=== PATIENT | male | born 1940 | race Caucasian/White ===

== ENCOUNTER 2016-10-13 18:37 | Emergency (ER) | payer MEDICARE, OTHER ==
[2011-05-11 23:11] VITALS: BMI 34.0
[2016-10-13 19:48] LABS: BASOPHILS 0.1 % (0.0-2.0); EOSINOPHILS 1.7 % (0-7); HEMATOCRIT 40.7 % (42.0-54.0); HEMOGLOBIN 13.3 g/dL (13.5-17.5); IMMATURE GRANULOCYTES 0.3 % (0-5); LYMPHOCYTES 15.7 % (15-50); MCH 28.1 pg (26.0-34.0); MCHC 32.7 g/dL (31.0-37.0); MONOCYTES 9.4 % (2-11); NEUTROPHILS 72.8 % (40-80); PLATELET COUNT 101 10x3/uL (130-400); RBC 4.73 10x6/uL (4.20-6.10); RDW 14.5 % (11.5-14.5); WBC 7.2 10x3/uL (4.8-10.8)
[2016-10-13 19:59] LABS: ANION GAP 17.4 mmol/L (8-16); BILIRUBIN - TOTAL 0.5 mg/dL (0.2-1.3); CALCIUM 8.7 mg/dL (8.5-10.1); CARBON DIOXIDE 23.8 mmol/L (21.0-32.0); CREATININE - SERUM 1.3 mg/dL (0.6-1.3); POTASSIUM - SERUM 4.2 mmol/L (3.5-5.1); PROTEIN - SERUM 8.1 g/dL (6.4-8.2)
[2016-10-13 20:02] LABS: APPEARANCE CLEAR (CLEAR); BILIRUBIN NEGATIVE (NEGATIVE); COLOR YELLOW (YELLOW); GLUCOSE 1000 mg/dL (NEGATIVE); KETONE NEGATIVE (NEGATIVE); LEUKOCYTE ESTERASE NEGATIVE (NEGATIVE); NITRITE NEGATIVE (NEGATIVE); PROTEIN NEGATIVE (NEGATIVE); SPECIFIC GRAVITY 1.015 (1.005-1.020); UROBILINOGEN NORMAL (NORMAL)
[2016-10-13 20:23] LABS: TROPONIN-I 0.01 ng/mL (0.000-0.060)
== END 2016-10-13 22:10 | disposition home or self-care (01) ==
LOC: D.ER 18:37
PROVIDERS: Emergency Medicine; Physician Assistant
DX: R10.13 Epigastric pain (principal); I25.10 Atherosclerotic heart disease of native coronary artery without angina pectoris; E11.9 Type 2 diabetes mellitus without complications; I10 Essential (primary) hypertension; E07.9 Disorder of thyroid, unspecified; Z95.0 Presence of cardiac pacemaker; Z86.73 Personal history of transient ischemic attack (TIA), and cerebral infarction without residual deficits

== ENCOUNTER 2016-11-12 19:12 | Emergency (ER) | payer MEDICARE, OTHER ==
[2011-05-11 23:11] VITALS: BMI 34.0
[2016-11-12 20:10] LABS: BASOPHILS 0.5 % (0.0-2.0); EOSINOPHILS 3.2 % (0-7); HEMATOCRIT 40.9 % (42.0-54.0); HEMOGLOBIN 13.2 g/dL (13.5-17.5); LYMPHOCYTES 23.9 % (15-50); MCH 28.2 pg (26.0-34.0); MCHC 32.3 g/dL (31.0-37.0); MCV 87.4 fL (80.0-100.0); MEAN PLATELET VOLUME 10.9 fL (7.4-10.4); MONOCYTES 9.5 % (2-11); NEUTROPHILS 62.9 % (40-80); PLATELET COUNT 94 10x3/uL (130-400); RBC 4.68 10x6/uL (4.20-6.10); WBC 4.4 10x3/uL (4.8-10.8)
[2016-11-12 20:11] LABS: ALKALINE PHOSPHATASE 72 U/L (46-116); ALT (SGPT) 40 U/L (10-68); BILIRUBIN - TOTAL 0.55 mg/dL (0.2-1.3); CALC OSMOLALITY 282 mosm/kg (275-300); CALCIUM 8.4 mg/dL (8.5-10.1); CHLORIDE - SERUM 103 mmol/L (98-107); CREATININE - SERUM 1.2 mg/dL (0.6-1.3); GLUCOSE 167 mg/dL (74-106); POTASSIUM - SERUM 4.3 mmol/L (3.5-5.1); SODIUM 138 mmol/L (136-145); UREA NITROGEN 20 mg/dL (7-18); eGFR NON AFRICAN AMERICAN 62 mL/min (90-120)
[2016-11-12 20:31] LABS: CREATINE KINASE 549 UL (21-232); TROPONIN-I 0.032 ng/mL (0.000-0.060)
[2016-11-12 20:31] LABS: PLATELET ESTIMATE DECREASED
[2016-11-12 20:35] LABS: CKMB 4.5 U/L (0.0-3.6)
== END 2016-11-12 20:35 | disposition home or self-care (01) ==
LOC: D.ER 19:12
PROVIDERS: Family Medicine; Nurse Practitioner Family
DX: S16.1XXA Strain of muscle, fascia and tendon at neck level, initial encounter (principal); V49.40XA Driver injured in collision with unspecified motor vehicles in traffic accident, initial encounter; Y93.89 Activity, other specified; Y92.410 Unspecified street and highway as the place of occurrence of the external cause; S62.637A Displaced fracture of distal phalanx of left little finger, initial encounter for closed fracture; I10 Essential (primary) hypertension; E11.9 Type 2 diabetes mellitus without complications; Z95.0 Presence of cardiac pacemaker; E07.9 Disorder of thyroid, unspecified

== ENCOUNTER → 2017-05-12 07:51 | Outpatient (CLI) | payer MEDICARE, OTHER | END | disposition home or self-care (01) | LOC: D.CT 07:51 | DX: R06.00 Dyspnea, unspecified (principal) ==

== ENCOUNTER → 2017-07-15 09:24 | Outpatient (CLI) | payer MEDICARE, OTHER ==
[2011-05-11 23:11] VITALS: BMI 34.0
[~2017-07-15 09:24] MED LIST: ALDACTONE25 MG PO; ARNUITY ELLIP200 MCG INH; BACLOFEN10 MG PO; GLUCOPHAGE1000 MG PO; INVOKANA300 MG PO; LEVOTHYROXINE75 MCG PO; LOSARTAN POTASS25 MG PO; MONTELUKAST TAB 10M; NEURONTIN 300300 MG; PLAVIX75 MG PO; PROAIR HFA8.5 GM INH; ZOVIRAX400 MG PO
[2017-07-15 11:50] LABS: BASOPHILS 0.2 % (0-2); HEMATOCRIT 40.3 % (42.0-54.0); HEMOGLOBIN 12.9 g/dL (13.5-17.5); IMMATURE GRANULOCYTES 0.2 % (0-5); LYMPHOCYTES 21.4 % (15-50); MCH 27.4 pg (26.0-34.0); MCV 85.6 fL (80.0-100.0); MEAN PLATELET VOLUME 10.2 fL (7.4-10.4); MONOCYTES 6.8 % (2-11); NEUTROPHILS 69.4 % (40-80); RBC 4.71 10x6/uL (4.20-6.10); RDW 14.8 % (11.5-14.5); WBC 5.6 10x3/uL (4.8-10.8)
[2017-07-15 11:52] LABS: PLATELET COUNT 118 10x3/uL (130-400)
[2017-07-16 05:15] LABS: IMMUNOGLOBULIN E 39 IU/mL (0-100)
[2017-07-16 09:17] LABS: ANA REFLEX - DIRECT Negative (Negative)
== END | disposition home or self-care (01) ==
LOC: D.RT 09:24
PROVIDERS: Internal Medicine Pulmonary Disease
DX: J44.9 Chronic obstructive pulmonary disease, unspecified (principal)

== ENCOUNTER 2017-07-22 05:06 | Day surgery (SDC) | payer MEDICARE, OTHER ==
--- NOTE | 2017-07-12 10:37 | HP ---
PATIENT: MITESH ARCHER MEDICAL RECORD: [id number] ACCOUNT: [id number] LOCATION:[facility] : 38 ADMISSION DATE: 07/16/17 HISTORY AND PHYSICAL EXAMINATION MITESH Haji (77yo, M) ID# [id number]. Date/Time07/09/2017 01:15SOVWB1939[facility] Dept.NPP_[facility] ClinicProviderEDKOFI NIXON MDInsuranceMed Primary: [place] Insurance # : [id number] PCP : JULIO BLAIR Referring Provider Name : JULIO BLAIR Employer Name : RETIRED Med Secondary: [employer] (MEDICARE SUPPLEMENT) Insurance # : [id number] Policy/Group # : [employer] PCP : JULIO BLAIR Referring Provider Name : JULIO BLAIR Employer Name : RETIRED Prescription: CMX - Member is eligible. Chief Complaint AICD evaluate for ICD generator exchange Patient's Care Team Primary Care Provider (): JULIO BLAIR: [address] [place] [address], , Referring Provider (): JULIO BLAIR: [address] [place] [address], , Spotter Driver: PB MCINTYRE MD: [address] [place] [phone], , Patient's Pharmacies [facility] ([facility]): [address] [place] [id number], , Vitals BP:136/76 sitting R arm 07/09/2017 01:24 pmBP Cuff Size:adult 07/09/2017 01:24 pmHR:80,reg 07/09/2017 01:24 pmHt:5 ft 8 in 07/09/2017 01:20 pmWt:210 lbs 07/09/2017 01:24 pmNotes:originally placed in , then was exchanged by Dr Bradshaw less than three years ago. Now at end of life again. 07/09/2017 01:25 pmBMI:31.9 07/09/2017 01:24 pmAllergies Reviewed Allergies IODINATED CONTRAST- ORAL AND IV DYE: Respiratory qotannkoVSFFNTP-ZXL-MDC REDUCTASE INHIBITORSHas Allergic Reactions to all IV DYES all statin drugs per ptMedications Reviewed Medications ACYCLOVIR TAB 351IMUYTFJDLGW25/23/15 filledCatalystHealthSolutionsacyclovir 400 mg eizncw48/01/17 filledCaremarkAdacel (Tdap Adolesn/Adult)(PF)2 Lf-(2.5-5-3-5)-5 Lf/0.5 mL IM /03/17 filledCaremarkALLOPURINOL 100 MG TABS05/17/15 filledCatalystHealthSolutionsAnoro Ellipta 62.5 mcg-25 mcg/actuation powder for qtmmfowefh68/14/17 filledCaremarkArnuity Ellipta 200 mcg/actuation powder for inhalation Inhale 1 puff(s) every day by inhalation route for 30 days.05/26/17 filledCaremarkAspir- enteredCindy Brownbaclofen 10 mg ckojej67/14/17 filledCaremarkcarvedilol 25 mg tablet TAKE 1 TABLET(S) TWICE A DAY BY ORAL ROUTE.04/21/17 filledCaremarkcholestyramine (with sugar) 4 gram powder for susp in a nqkyde92/28/14 filledCaremarkCLOPIDOGREL TAB 07BLUTRVMOGHTKB96/12/15 filledCatalystHealthSolutionsclopidogrel 75 mg pirxoo57/01/17 filledCaremarkfamciclovir 500 mg qjdgwy72/02/12 HISTORY AND PHYSICAL [id number] MITESH ARCHER filledCaremarkgabapentin 300 mg hwbvaga59/01/17 filledCaremarkglipiZIDE 5 mg ifsbrr98/07/17 filledCaremarkHYDROcodone 10 mg-acetaminophen 325 mg tablet Take 1 tablet(s) every 4-6 hours by oral route.06/13/11 filledCareMark-RxAmericaInvokana 300 mg eztzcs12/17/17 filledCaremarkirbesartan 150 mg yqnwzg66/02/14 filledCaremarkJanuvia 100 mg ktfexa98/07/14 filledCaremarkketorolac 0.4 % eye drops04/23/12 filledCaremarklevothyroxine 75 mcg /01/17 filledCaremarklisinopril 5 mg /30/11 filledCareMark-RxAmericalosartan 25 mg ixlsgq58/08/17 filledCaremarkmetFORMIN 1,000 mg /01/17 filledCaremarkmontelukast 10 mg tablet Take 1 tablet(s) every day by oral route for 30 days.07/02/17 filledCaremarknabumetone 750 mg /30/14 filledCaremarkNitrostat 0.4 mg sublingual oqfvhq56/01/15 filledCaremarkprednisoLONE acetate 1 % eye drops,/30/12 filledCaremarkraNITIdine 150 mg bqzcci05/20/17 filledCaremarkspironolactone 25 mg /08/17 filledCaremarkTRAMADOL HCL TAB 50MGTRAMADOL HCL01/03/15 filledCatalystHealthSolutionstriamcinolone acetonide 55 mcg nasal spray qynxher45/01/11 filledCaremarkVentolin HFA 90 mcg/actuation aerosol inhaler Inhale 2 PUFF EVERY 4 HOURS as needed by inhalation route.05/26/17 filledCaremarkVigamox 0.5 % eye drops04/23/12 filledCaremarkProblems Reviewed Problems Cardiomyopathy - Onset: 07/02/2017 Osteoarthritis of knee Shoulder joint pain Acquired trigger finger Non-traumatic rupture of biceps brachii tendon Sprain of shoulder and upper arm Implanted defibrillator generator failure - Onset: 07/02/2017 Family History Discussed Family History Non-contributory.Mother- AsthmaFather- Disorder of lung - MTbSocial History Discussed Social History Smoking Status: Never smoker Non-smoker Surgical History Reviewed Surgical History Biceps tendon repair - 05/10/2011 Other - 08/25/1986 - Open Heart Surgery/CABG cholecystectomy, PCI stent, hand surgery Past Medical History Discussed Past Medical History COPD: Y Chest Pain: Y Coronary Artery Disease: Y - CABG, PCI stent Diabetes: Y Heart Disease: Y - pacemaker High Blood Pressure: Y Thyroid Problems: Y Documents for Discussion N/A Screening HISTORY AND PHYSICAL [id number] MITESH ARCHER None recorded. HPI Coronary Artery Disease F/U Reported by patient. Severity: symptoms are improving; no chest discomfort with daily activities; has not needed to use Nitroglycerin Context: non-smoker Associated Symptoms: no chest pain; no neck pain; no left arm pain; no dyspnea with exertion; no sweating; no nausea; no stress Notes: no problems since he has had device. Has not been shocked. biventricular AICD end-of-life ROS Patient reports exercise intolerance but reports no fever, no night sweats, no significant weight gain, and no significant weight loss. He reports dry eyes but reports no irritation and no vision change. He reports nose/sinus problems but reports no frequent nosebleeds. He reports chest pain on exertion and shortness of breath when walking but reports no arm pain on exertion, no shortness of breath when lying down, no palpitations, and no known heart murmur. He reports cough, wheezing, and shortness of breath but reports no coughing up blood. He reports frequent diarrhea but reports no abdominal pain, no vomiting, normal appetite, not vomiting blood, no nausea, and no constipation. He reports increased urinary frequency but reports no incontinence, no difficulty urinating, and no hematuria. He reports muscle aches, muscle weakness, and arthralgias/joint pain but reports no back pain and no swelling in the extremities. He reports dizziness but reports no loss of consciousness, no weakness, no numbness, and no seizures. He reports fatigue. He reports sinus pressure but reports no runny nose, no itching, no hives, and no frequent sneezing. He reports no difficulty hearing and no ear pain. He reports no sore throat, no bleeding gums, no snoring, no dry mouth, no mouth ulcers, no oral abnormalities, and no teeth problems. He reports no jugular vein distension and no swollen glands. He reports no abnormal mole, no jau ndice, and no rashes. He reports no depression, no sleep disturbances, feeling safe in relationship, and no alcohol abuse. He reports no swollen glands and no bruising. ROS as noted in the HPI Physical Exam Patient is a 77-year-old male. Constitutional: General Appearance: well developed and overweight. Level of Distress: no acute distress. Ambulation: ambulating normally. Ears: Cerumen negative. Canal: no erythema or swelling. Tympanic Membrane: no bulging or fluid and perforated. Nasal: Nasal Mucosa: no discharge and edematous. Septum: not markedly deformed. Oropharynx: Lips, Teeth, and Gums normal dentition and lips. Oral Mucosa no ulcer, mass, inflammation, swelling, or leukoplakia and moist. Palate: normal hard palate and soft palate. Tongue: no jonathan thema, lesions, enlargement, or swelling. Tonsils: no enlargement or lesions. Posterior Pharynx no enlargement, erythema, exudate, ulcers, mass, cobblestoning, or white patches. Neck: Neck: supple, trachea midline, no masses, and Full ROM. Thyroid: no enl argement or nodules and non-tender. Jugular Veins: no jugular venous distention or burrows a waves present and normal jugular venous pressure. Lungs: Respiratory effort: unlabored. Inspection: normal curve and chest wall HISTORY AND PHYSICAL [id number] MITESH ARCHER expansion; no deformity, tenderness , or swelling; and tactile fremitus present and equal on both sides. Auscultation: no wheezing, rales/crackles, or rhonchi and breath sounds normal. Percussion: no dullness, flatness, or hyperresonance. Cardiovascular: Precordial Exam: non displaced focal PMI. Heart Rate And Rhythm: normal heart rate and rhythm. Heart Sounds: no gallop, click, physiologically split S2, or pericardial friction rub and normal s1. Systolic Murmur: no systolic murmurs. Diastolic Murmur: no diastolic murmurs. Observation/Palpa tion of peripheral vascular system: no cyanosis or varicosity changes and normal dorsalis pedis and posterior tibialis. Abdomen: Inspection and Palpation: no tenderness or masses and soft and non-distended. Liver: non-tender and no hepatomegaly. Spleen: no n-tender and no splenomegaly. Bowel Sounds: normal and no abdominal bruits. Lymphatic: no cervical lymph enlargement, axillary LAD, inguinal LAD, femoral LAD, supraclavicular LAD, or popliteal LAD. Musculoskeletal:: Motor Strength and Tone: normal bulk, tone, and motor strength. Gait and Station: normal gait, station, and tandem gait. Joints, Bones, and Muscles: no contractures, malalignment, tenderness, scoliosis, kyphosis, or bony abnormalities and normal movement of all extremities. Extremities: Inspection/Palpation of digits and nails: no clubbing, cyanosis, petechiae, ischemia, edema, or nodular lesions. Skin: Inspection and palpation: no rash, lesions, jaundice, ulcer, erythema, or induration and normal turgor. Neurologic: Mental Status/Orientatio n: oriented to person, place, problem/situation, and time. Mood/Affect: normal mood and affect. Sensation sensation normal. Cranial Nerves cranial nerves II - XII intact. Deep Tendon Reflexes upper extremities positive and lower extremities positive. Assessment / Plan AICD end-of-life 1. Cardiomyopathy I42.9: Cardiomyopathy, unspecified Discussion Notes I have discussed the patient's disease process with him in detail as well as the alternative methods of treatment we discussed as the generator exchange i n the expected benefits and risks which include bleeding, infection, stroke, , and the imponderables. He understands all of the above and wishes to proceed with planned surgery next week. HISTORY AND PHYSICAL [id number] MITESH ARCHER EDWARD MD at 1037 CC: [id number] DICTATION DATE: 07/09/17 1315 BEAM SAW OPERATOR: MEENA 07/09/17 1501 [facility] [address] [place] [address]
[~2017-07-22] VITALS: Ht 175.3 cm; Wt 93.0 kg
[2017-07-22 06:14] LABS: HEMATOCRIT 38.5 % (42.0-54.0); HEMOGLOBIN 12.1 g/dL (13.5-17.5); MCH 26.9 pg (26.0-34.0); MCHC 31.4 g/dL (31.0-37.0); MCV 85.6 fL (80.0-100.0); MEAN PLATELET VOLUME 10.9 fL (7.4-10.4); RBC 4.5 10x6/uL (4.20-6.10); RDW 15.1 % (11.5-14.5); WBC 4.3 10x3/uL (4.8-10.8)
[2017-07-22] MEDS ORDERED: BACLOFEN10 MG PO (06:14)
[2017-07-22] MEDS ORDERED: ALDACTONE25 MG PO (06:14)
[2017-07-22] MEDS ORDERED: LEVOTHYROXINE75 MCG PO (06:15)
[2017-07-22] MEDS ORDERED: MONTELUKAST TAB 10M (06:15)
[2017-07-22] MEDS ORDERED: LOSARTAN POTASS25 MG PO (06:15)
[2017-07-22] MEDS ORDERED: NEURONTIN 300300 MG (06:16)
[2017-07-22] MEDS ORDERED: PLAVIX75 MG PO (06:16)
[2017-07-22] MEDS ORDERED: ZOVIRAX400 MG PO (06:16)
[2017-07-22] MEDS ORDERED: INVOKANA300 MG PO (06:17)
[2017-07-22] MEDS ORDERED: PROAIR HFA8.5 GM INH (06:17)
[2017-07-22] MEDS ORDERED: GLUCOPHAGE1000 MG PO (06:17)
[2017-07-22] MEDS ORDERED: ARNUITY ELLIP200 MCG INH (06:18)
[2017-07-22 06:25] VITALS: BP 116/61; Ht 175.3 cm; Wt 93.0 kg
[2017-07-22 06:29] LABS: APTT 27.6 SECONDS (22.8-39.4); INR 1.09 (0.85-1.17)
[2017-07-22 06:33] LABS: ANION GAP 14.7 mmol/L (8-16); CALCIUM 8.4 mg/dL (8.5-10.1); CARBON DIOXIDE 24.7 mmol/L (21.0-32.0); CREATININE - SERUM 1.4 mg/dL (0.6-1.3); POTASSIUM - SERUM 4.4 mmol/L (3.5-5.1)
--- NOTE | 2017-07-22 07:14 | NUR ---
0700 TO XRAY FOR PA AND LAT CXR.
--- NOTE | 2017-07-22 12:00 | NUR ---
1030 IV DC WITH CATHER TIP INTACT
--- NOTE | 2017-07-25 16:03 | OP ---
PATIENT NAME: MITESH ARCHER MEDICAL RECORD: [id number] :38 LOCATION:D[facility] ADMISSION DATE: SURGEON: MISA GHOSH MD DATE OF OPERATION: 07/22/2017 SURGEON: Misa Ghosh MD ANESTHESIA: General, Dr. Cook. OPERATION PERFORMED: 1. Biventricular AICD generator change. 2. Pacemaker pocket revision. PREOPERATIVE DIAGNOSIS: Cardiomyopathy. POSTOPERATIVE DIAGNOSIS: Cardiomyopathy. INDICATION FOR OPERATION: Pulse generator end of life. FINDINGS OF THE OPERATION: The explanted generator Medtronic model number [id number], serial number [id number]. Newly implanted pulse generator Medtronic model number [id number], serial number [id number]. ESTIMATED BLOOD LOSS: Less than 5 cc. DESCRIPTION OF PROCEDURE: After informed consent, adequate preoperative medication evaluation, the patient was brought to the operating room, placed on the table in the supine position. After induction of general anesthesia and application of appropriate monitoring devices, the left chest was prepped and draped in a sterile field. Utilizing Betadine scrub, alcohol, and Betadine solution, a Betadine-impregnated drape was also used, 1% lidocaine was infiltrated over the device as well as in the pocket. An incision was made and dissection carried down to the pulse generator. The pulse generator was explanted and the leads were mobilized. The pacemaker pocket was enlarged inferiorly and medially due to contraction of the pocket. The leads were partially mobilized. The leads were removed and cleaned and placed in the new device. The new device was interrogated and found to be in good position and good function. The pocket was irrigated. Instrument count and sponge count were correct times 2. Pocket was closed in layers utilizing 3-0 Vicryl on the pocket, 3-0 Vicryl on superficial subcutaneous tissue, and 5-0 subcuticular Monocryl on the skin. Sterile dressings were applied. The patient tolerated the procedure well and was transferred to postanesthesia recovery in satisfactory condition. TRANSINT:[id number] Voice Confirmation ID: [id number] DOCUMENT ID: [id number] OPERATIVE REPORT [id number] MITESH ARCHER MISA GHOSH MD at 1603 CC: [id number] DICTATION DATE: 07/22/17 0859 SUPERVISOR POWER REACTOR: 07/22/17 1326 [facility] 07/22/17 [facility] [address] [place] [id number]
== END 2017-07-22 10:45 | disposition home or self-care (01) ==
LOC: D.OPS 05:06
PROVIDERS: Internal Medicine Cardiovascular Disease
DX: Z45.02 Encounter for adjustment and management of automatic implantable cardiac defibrillator (principal); I42.9 Cardiomyopathy, unspecified; Z95.1 Presence of aortocoronary bypass graft; J44.9 Chronic obstructive pulmonary disease, unspecified; I10 Essential (primary) hypertension; E11.9 Type 2 diabetes mellitus without complications; E07.9 Disorder of thyroid, unspecified; Z79.82 Long term (current) use of aspirin; Z79.891 Long term (current) use of opiate analgesic; Z79.84 Long term (current) use of oral hypoglycemic drugs; Z91.041 Radiographic dye allergy status; M17.9 Osteoarthritis of knee, unspecified

== ENCOUNTER → 2018-02-26 13:21 | Outpatient (CLI) | payer MEDICARE, OTHER ==
[2017-07-22 06:25] VITALS: BMI 30.3
== END | disposition home or self-care (01) ==
LOC: D.CT 13:21
DX: M25.512 Pain in left shoulder (principal)

== ENCOUNTER → 2018-04-15 07:25 | Outpatient (CLI) | payer MEDICARE, OTHER ==
[2017-07-22 06:25] VITALS: BMI 30.3
== END | disposition home or self-care (01) ==
LOC: D.RT 04-09 10:00 → D.CT 04-09 11:00 → D.RT 07:25
DX: R91.1 Solitary pulmonary nodule (principal)